=== PATIENT | female | born 1995 | race Caucasian/White ===

== ENCOUNTER 2017-03-31 09:25 | Emergency (ER) | payer OTHER ==
[2017-03-31] MEDS ORDERED: Ondansetron INJ* 2 MG/ML VIAL IV ONE (09:57)
[2017-03-31 10:33] LABS: Hematocrit 44 % (35-47); Hemoglobin 14.8 g/dl (12.0-16.0); Mean Corpuscular HGB Conc 34 g/dl (31-36); Mean Corpuscular Hemoglobin 30 pg (27-31); Mean Corpuscular Volume 87 fL (80-97); Mean Platelet Volume 9 um3 (7.4-10.4); Red Blood Count 5.03 10^6/ul (4.0-5.4); Red Cell Distribution Width 12 % (10.5-15); White Blood Count 8.5 10^3/ul (3.5-10.8)
[2017-03-31 10:37] LABS: Albumin 4.5 g/dL (3.2-5.2); BUN/Creatinine Ratio 15.1 (8-20); Calcium 9.6 mg/dL (8.6-10.3); EGFR African American 127.1 (>60); EGFR Non-African American 98.8 (>60); Potassium 3.8 mmol/L (3.5-5.0); Total Bilirubin 1.9 mg/dL (0.2-1.0); Total Protein 7.5 g/dL (6.4-8.9)
[2017-03-31 10:38] LABS: Urine Bacteria Absent (Absent); Urine Bilirubin Negative (Negative); Urine Glucose Negative (Negative); Urine Nitrite Negative (Negative)
--- NOTE | 2017-03-31 11:31 | RAD ---
INDICATION: Left lower quadrant pain COMPARISON: November 28, 2014 TECHNIQUE: Longitudinal and transverse transvaginal scans of the pelvis were obtained. FINDINGS: Uterus: The uterus is normal in size. There are no focal masses. The uterus measures 8.2 x 2.7 x 4.6 cm. Endometrial thickness: The endometrial thickness is measured at 0.5 cm. . Free fluid: There is a small amount of free fluid. Ovaries: The ovaries are normal in size. The right ovary measures 3.8 x 1.9 x 2.5 cm. The left ovary measures 5.7 x 1.5 x 2.4 cm. There are multiple bilateral follicles. Doppler interrogation demonstrates flow to each ovary. Other: None IMPRESSION: MULTIPLE BILATERAL FOLLICLES WITH A SMALL AMOUNT OF FREE FLUID.
[2017-03-31 11:33] VITALS: BP 122/67
--- NOTE | 2017-03-31 14:13 | ED ---
Abdominal Pain/Female - HPI Summary HPI Summary: Patient presents to ED with CC of LLQ pain x 2 days which she describes as sharp , severe and intermittent. She has a long history of constipation and states she usually feels "bloated" when she is constipated. She had 1X episode of vomiting, but notes that it was likely d/t the pain and nervousness around the pain as opposed to feeling nauseous. She denies other pain or symptoms. She denies ovarian issues in the past and LMP was 2 weeks ago. Last BM was yesterday, but prior to that it was 1 week ago, and that is normal for her. She does not drink a lot of water and states she sometimes needs mag citrate to help her with constipation. She has not taken anything for pain. Nothing makes the pain better or worse. Pain does not radiates and she describes it currently as "dull." - History of Current Complaint Chief Complaint: EDAbdFlynnin Stated Complaint: ABD PAIN,VOMITING Time Seen by Provider: 03/31/17 09:41 Hx Obtained From: Patient Hx Last Menstrual Period: 11/08/16 Onset/Duration: Sudden Onset Timing: Constant Severity Initially: Moderate Severity Currently: Moderate Pain Intensity: 5 Pain Scale Used: 0-10 Numeric Location: Discrete At: LLQ Radiates: No Character: Dull, Cramping Aggravating Factor(s): Nothing Alleviating Factor(s): Nothing Associated Signs and Symptoms: Positive: Constipation, Vomiting - Risk Factors Ectopic Risk Factor: Negative Ovarian Torsion Risk Factor: Reproductive Age Allergies/Adverse Reactions: Allergies Allergy/AdvReac Type Severity Reaction Status Date / Time Amoxicillin Allergy Mild Hives Verified 03/31/17 09:34 Penicillins Allergy Mild Hives Verified 03/31/17 09:34 Codeine Allergy Hives Verified 03/31/17 09:34 PMH/Surg Hx/FS Hx/Imm Hx Previously Healthy: Yes Endocrine/Hematology History: Denies: Hx Anticoagulant Therapy, Hx Diabetes, Hx Thyroid Disease Cardiovascular History: Denies: Hx Congestive Heart Failure, Hx Deep Vein Thrombosis, Hx Hypertension , Hx Myocardial Infarction, Hx Pacemaker/ICD Respiratory History: Denies: Hx Asthma, Hx Chronic Obstructive Pulmonary Disease (COPD), Hx Lung Cancer, Hx Pneumonia, Hx Pulmonary Embolism, Other Respiratory Problems/ Disorders GI History: Denies: Hx Gall Bladder Disease, Hx Gastrointestinal Bleed, Hx Ulcer, Hx Urosepsis History: Denies: Hx Kidney Stones, Hx Renal Disease Musculoskeletal History: Reports: Hx Back Problems Sensory History: Denies: Hx Contacts or Glasses, Hx Hearing Aid Opthamlomology History: Denies: Hx Contacts or Glasses Neurological History: Reports: Hx Migraine - ONCE [id number] Denies: Hx Dementia, Hx Seizures, Hx Transient Ischemic Attacks (TIA) Psychiatric History: Reports: Hx Panic Disorder Denies: Hx Anxiety, Hx Depression, Hx Schizophrenia, Hx Bipolar Disorder - Surgical History Surgery Procedure, Year, and Place: 2013 [place] Teeth, [facility] OFFICE. 06/25/2015 MUSCLE BIOPSY RIGHT THIGH, [facility] [place] Hx Anesthesia Reactions: No Infectious Disease History: No Infectious Disease History: Denies: Hx Clostridium Difficile, Hx Hepatitis, Hx Human Immunodeficiency Virus (HIV), Hx of Known/Suspected MRSA, Hx Shingles, Hx Tuberculosis, History Other Infectious Disease, Traveled Outside the in Last 30 Days - Family History Known Family History: Positive: Hypertension Negative: Cardiac Disease, Diabetes - Social History Occupation: Unemployed Lives: With Family Alcohol Use: Occasionally Alcohol Amount: 2-3 DRINKS PER MONTH Hx Substance Use: No Substance Use Type: Reports: None Hx Tobacco Use: No Smoking Status (MU): Never Smoked Tobacco Do You Chew or Dip Tobacco: No Have You Chewed or Dipped Tobacco in the LAST YEAR: No Review of Systems Constitutional: Negative Eyes: Negative Cardiovascular: Negative Respiratory: Negative Positive: Abdominal Pain, Vomiting Positive: no symptoms reported, see HPI Musculoskeletal: Negative Neurological: Negative Psychological: Normal All Other Systems Reviewed And Are Negative: Yes Physical Exam Triage Information Reviewed: Yes Vital Signs On Initial Exam: Initial Vitals Temp Pulse Resp BP Pulse Ox 97.6 F 89 18 125/70 100 03/31/17 09:31 03/31/17 09:31 03/31/17 09:31 03/31/17 09:31 03/31/17 09:31 Vital Signs Reviewed: Yes Appearance: Positive: Well-Appearing, No Pain Distress Skin: Positive: Warm, Skin Color Reflects Adequate Perfusion Neck: Positive: Supple, Nontender, No Lymphadenopathy Respiratory/Lung Sounds: Positive: Clear to Auscultation, Breath Sounds Present Cardiovascular: Positive: Normal, RRR, Pulses are Symmetrical in both Upper and Lower Extremities Abdomen Description: Positive: Soft, Other: - tenderness over LLQ, no tenderness at Mcburneys point, negative murphys sign, negative psoas, negative obturator. No guarding and abdomen is not distended. bowel sounds diminished. Bowel Sounds: Positive: Hypoactive Musculoskeletal: Positive: Normal, Strength/ROM Intact Neurological: Positive: Sensory/Motor Intact, Alert, Oriented to Person Place, Time Psychiatric: Positive: Normal AVPU Assessment: Alert - Paulo Coma Scale Coma Scale Total: 15 Diagnostics - Vital Signs Vital Signs Temp Pulse Resp BP Pulse Ox 03/31/17 11:32 100.0 F 64 16 122/67 100 03/31/17 09:32 97.6 F 81 17 125/70 100 03/31/17 09:31 97.6 F 89 18 125/70 100 - Laboratory Lab Results: Lab Results 03/31/17 03/31/17 03/31/17 Range/Units 09:33 09:33 09:33 WBC 8.5 (3.5-10.8) 10^3/ul RBC 5.03 (4.0-5.4) 10^6/ul Hgb 14.8 (12.0-16.0) g/dl Hct 44 (35-47) % MCV 87 (80-97) fL MCH 30 (27-31) pg MCHC 34 (31-36) g/dl RDW 12 (10.5-15) % Plt Count 237 (150-450) 10^3/ul MPV 9 (7.4-10.4) um3 Neut % (Auto) 76.0 (38-83) % Lymph % (Auto) 18.8 L (25-47) % [place] % (Auto) 4.1 (1-9) % Eos % (Auto) 0.5 (0-6) % Baso % (Auto) 0.6 (0-2) % Absolute Neuts (auto) 6.4 (1.5-7.7) 10^3/ul Absolute Lymphs (auto) 1.6 (1.0-4.8) 10^3/ul Absolute Monos (auto) 0.3 (0-0.8) 10^3/ul Absolute Eos (auto) 0 (0-0.6) 10^3/ul Absolute Basos (auto) 0 (0-0.2) 10^3/ul Absolute Nucleated RBC 0.01 10^3/ul Nucleated RBC % 0.1 Sodium 137 (133-145) mmol/L Potassium 3.8 (3.5-5.0) mmol/L Chloride 103 (101-111) mmol/L Carbon Dioxide 27 (22-32) mmol/L Anion Gap 7 (2-11) mmol/L BUN 11 (6-24) mg/dL Creatinine 0.73 (0.51-0.95) mg/dL Est GFR ( Amer) 127.1 (>60) Est GFR (Non-Af Amer) 98.8 (>60) BUN/Creatinine Ratio 15.1 (8-20) Glucose 89 (70-100) mg/dL Calcium 9.6 (8.6-10.3) mg/dL Total Bilirubin 1.90 H (0.2-1.0) mg/dL AST 15 (13-39) U/L ALT 11 (7-52) U/L Alkaline Phosphatase 51 (34-104) U/L Total Protein 7.5 (6.4-8.9) g/dL Albumin 4.5 (3.2-5.2) g/dL Globulin 3.0 (2-4) g/dL Albumin/Globulin Ratio 1.5 (1-3) Lipase 11 (11.0-82.0) U/L Beta HCG, Quant 0.75 mIU/mL Urine Color Yellow Urine Appearance Cloudy Urine pH 8.0 (5-9) Ur Specific [place] 1.018 (1.010-1.030) Urine Protein Negative (Negative) Urine Ketones Negative (Negative) Urine Blood Negative (Negative) Urine Nitrate Negative (Negative) Urine Bilirubin Negative (Negative) Urine Urobilinogen Negative (Negative) Ur Leukocyte Esterase 1+ H (Negative) Urine WBC (Auto) Trace(0-5/hpf) (Absent) Urine RBC (Auto) Absent (Absent) Ur Squamous Epith Cells Present H (Absent) Urine Bacteria Absent (Absent) Urine Glucose Negative (Negative) Result Diagrams: 03/31/17 09:33 03/31/17 09:33 Lab Statement: Any lab studies that have been ordered have been reviewed, and results considered in the medical decision making process. Abdominal Pain Fem Course/Dx - Course Course Of Treatment: Patient c/o tenderness over LLQ. No tenderness at Mcburneys point, negative murphys sign, negative psoas, negative obturator. No guarding and abdomen is not distended. bowel sounds diminished. Explained to patient US vs. Xray and to r/o ovarian torsion, cysts, and constipation. Patient prefers to do the US first. US shows multiple bilateral follicles. She is referred back to her OBGYN for this issue. She prefers not to have the abdominal xray as she feels it will show constipation and knows it will not change the course of treatment. She prefers discharge and provider is prescribing zofran if needed for nausea. She refuses pain medicine. She will follow up with PCP and come back for worsening pain. - Diagnoses Differential Diagnosis: Positive: Bowel Obstruction, Constipation, Irritable Bowel Syndrome, Urinary Tract Infection Provider Diagnoses: Constipation Discharge - Discharge Plan Condition: Stable Disposition: HOME Prescriptions: Ondansetron ODT TAB* [Zofran 4 MG Odt TAB*] 4 mg PO Q6H PRN #12 tab.odt MDD 4 PRN Reason: Nausea Patient Education Materials: Constipation (ED), High Fiber Diet (ED) Forms: *Work Release Referrals: Cherrie Lind MD [Primary Care Provider] - Additional Instructions: Recommend Mag Citrate solution for constipation. Increase your water intake. Drink at least 10 glasses of water per day. Slowly increase your fiber intake and decrease the amount of white breads and other sugars. Follow up with an OBGYN. If symptoms persist, come back to ED or see your PCP. Use Zofran as needed for nausea.
== END 2017-03-31 12:45 | disposition home or self-care (01) ==
LOC: ED 09:25
DX: K59.00 Constipation, unspecified (principal); R10.32 Left lower quadrant pain; R11.10 Vomiting, unspecified
CPT/HCPCS: 36415; 76830; 80053; 81003; 81015; 83690; 84702; 85025; 87086; 96374; 99282; J2405

== ENCOUNTER → 2017-04-07 13:36 | Emergency (ER) | payer OTHER ==
[2017-04-07 13:44] VITALS: BP 136/72
== END | disposition left against medical advice (07) ==
LOC: ED 13:36
DX: R10.9 Unspecified abdominal pain (principal); Z53.21 Procedure and treatment not carried out due to patient leaving prior to being seen by health care provider

== ENCOUNTER 2017-09-24 19:19 | Emergency (ER) | payer SELFPAY ==
[2017-09-24 19:29] VITALS: BP 120/62
--- NOTE | 2017-09-24 19:55 | UC ---
Complaint Female HPI - HPI Summary HPI Summary: 22 year old female presents with complains of urinary frequency, urgency , and burning. - History Of Current Complaint Chief Complaint: UCGU Stated Complaint: UTI Time Seen by Provider: 09/24/17 19:23 Hx Obtained From: Patient Hx Last Menstrual Period: September 16, 2017 Onset/Duration: Sudden Onset Timing: Constant Severity Initially: Moderate Severity Currently: Moderate - Allergies/Home Medications Allergies/Adverse Reactions: Allergies Allergy/AdvReac Type Severity Reaction Status Date / Time Amoxicillin Allergy Mild Hives Verified 04/07/17 20:18 Penicillins Allergy Mild Hives Verified 04/07/17 20:18 Codeine Allergy Hives Verified 04/07/17 20:18 Home Medications: Home Medications Clindamycin HCl [Clindamycin 150 MG CAP*] 09/24/17 [History] Ibuprofen [Advil] 400 mg PO 09/24/17 [History] PMH/Surg Hx/FS Hx/Imm Hx Previously Healthy: Yes Other History Of: Negative For: HIV, Hepatitis B, Hepatitis C, Anticoagulant Therapy - Surgical History Surgical History: Yes Surgery Procedure, Year, and Place: 2013 [place] Teeth, [facility]. 06/25/2015 MUSCLE BIOPSY RIGHT THIGH, [facility] [place] - Family History Known Family History: Positive: Hypertension Negative: Cardiac Disease, Diabetes - Social History Alcohol Use: Occasionally Alcohol Amount: 2-3 DRINKS PER MONTH Substance Use Type: None Smoking Status (MU): Never Smoked Tobacco - Immunization History Most Recent Influenza Vaccination: unknown Most Recent Tetanus Shot: uknown Most Recent Pneumonia Vaccination: never Review of Systems Constitutional: Negative Skin: Negative Eyes: Negative ENT: Negative Respiratory: Negative Cardiovascular: Negative Gastrointestinal: Negative Genitourinary: Dysuria, Frequency, Urgency Motor: Negative Neurovascular: Negative Musculoskeletal: Negative Neurological: Negative Psychological: Negative All Other Systems Reviewed And Are Negative: Yes Physical Exam Triage Information Reviewed: Yes Vital Signs: Initial Vital Signs Temp 36.8 C 09/24/17 19:23 Pulse 75 09/24/17 19:23 Resp 16 09/24/17 19:23 BP 120/62 09/24/17 19:23 Pulse Ox 100 09/24/17 19:23 Vital Signs Reviewed: Yes Eye Exam: Normal ENT Exam: Normal Dental Exam: Normal Neck exam: Normal Neck: Positive: 1 Respiratory Exam: Normal Cardiovascular Exam: Normal Abdominal Exam: Normal Musculoskeletal Exam: Normal Neurological Exam: Normal Psychological Exam: Normal Skin Exam: Normal Complaint Female Dx - Differential Dx/Diagnosis Provider Diagnoses: dysuria. urinary frequency Discharge - Discharge Plan Condition: Stable Disposition: HOME Prescriptions: Nitrofurantoin Monohyd Macro [Macrobid] 100 mg PO BID #14 cap Patient Education Materials: Urinary Tract Infection in Women (ED) Referrals: Cherrie Lind MD [Primary Care Provider] -
== END 2017-09-24 20:06 | disposition home or self-care (01) ==
LOC: UCEAST 19:19
DX: R30.0 Dysuria (principal); R35.0 Frequency of micturition; Z32.02 Encounter for pregnancy test, result negative; Z88.5 Allergy status to narcotic agent; Z88.0 Allergy status to penicillin
CPT/HCPCS: 81003; 84702; 87077; 87086; 99211; G0463

== ENCOUNTER 2019-02-04 11:46 | Emergency (ER) | payer SELFPAY ==
[2019-02-04 12:46] VITALS: BP 111/66
[2019-02-04] MEDS ORDERED: Tetan/Diph/Pertus SYR(Tdap)* 0.5 ML SYR(BOOSTRIX) use SYR IM ONE (14:22)
--- NOTE | 2019-02-04 14:59 | UC ---
UC General HPI - HPI Summary HPI Summary: 23 yo female c/o L great toe plantar wound. Event occurred 01/30/19 in [facility] [place]. Cut foot on something, thinks sharp shell[place] Has been using H2O2, dressing changes tid. Not healing. No redness. A little tender. No fever / chills. No GI issues. No cp / sob. Last Tet booster 2005. Takes regular bcp, denies . - History of Current Complaint Chief Complaint: UCLaceration Stated Complaint: CUT ON FOOT Hx Obtained From: Patient Hx Last Menstrual Period: 01/05/19 Pain Intensity: 5 - Allergy/Home Medications Allergies/Adverse Reactions: Allergies Allergy/AdvReac Type Severity Reaction Status Date / Time codeine Allergy Hives Verified 02/04/19 12:39 Penicillins Allergy Hives Verified 02/04/19 12:39 PMH/Surg Hx/FS Hx/Imm Hx Previously Healthy: Yes Other History Of: Negative For: HIV, Hepatitis B, Hepatitis C, Anticoagulant Therapy - Surgical History Surgical History: Yes Surgery Procedure, Year, and Place: 2013 [place] Teeth, [facility]. 06/25/2015 MUSCLE BIOPSY RIGHT THIGH, [facility] [place] - Family History Known Family History: Positive: Hypertension Negative: Cardiac Disease, Diabetes - Social History Alcohol Use: Occasionally Alcohol Amount: 2-3 DRINKS PER MONTH Substance Use Type: None Smoking Status (MU): Never Smoked Tobacco - Immunization History Most Recent Influenza Vaccination: unknown Most Recent Tetanus Shot: uknown Most Recent Pneumonia Vaccination: never Review of Systems All Other Systems Reviewed And Are Negative: Yes Constitutional: Positive: Other - see hpi Skin: Positive: Other - see hpi Eyes: Positive: Other - see hpi ENT: Positive: Other - see hpi Cardiovascular: Positive: Negative Gastrointestinal: Positive: Negative Genitourinary: Positive: Negative Motor: Positive: Negative, Other - see hpi Neurovascular: Positive: Negative Musculoskeletal: Positive: Other: - see hpi Neurological: Positive: Other - see hpi Psychological: Positive: Negative Is Patient Immunocompromised?: No Physical Exam Triage Information Reviewed: Yes Appearance: Well-Appearing, Well-Nourished Vital Signs: Initial Vital Signs Temp 98 F 02/04/19 12:43 Pulse 60 02/04/19 12:43 Resp 16 02/04/19 12:43 BP 111/66 02/04/19 12:43 Pulse Ox 100 02/04/19 12:43 Vital Signs Reviewed: Yes Eye Exam: Normal - grossly normal ENT Exam: Normal - grossly normal Neck exam: Normal Neck: Positive: Supple Respiratory Exam: Normal Cardiovascular Exam: Normal Abdominal Exam: Normal Musculoskeletal Exam: Normal Neurological Exam: Normal Psychological Exam: Normal - conversing easily and appropriately nad Skin Exam: Normal - nondiaphoretic. L great toe prox plantar + wound with dry skin, + pink granulation underlying, mild slough. no purulence, crepitus, swelling. not hot or overly red. CR is good. ROM good. Course/Dx - Course Course Of Treatment: Reviewed WC and WH with pt. see avs. Tet booster administered. F/u PCP advised, routine. Questions as posed answered to the best of my ability. - Diagnoses Provider Diagnosis: Wound, open, toe Discharge - Sign-Out/Discharge Documenting (check all that apply): Patient Departure All imaging exams completed and their final reports reviewed: No Studies - Discharge Plan Condition: Stable Disposition: HOME Prescriptions: Mupirocin 2% OINT* [Bactroban 2 % Oint*] 1 applic TOPICAL BID #1 tube Sulfamethox/Trimethoprim DS* [Bactrim DS 800/160 TAB*] 1 tab PO BID #20 tab Patient Education Materials: Diphtheria/Acellular Pertussis/Tetanus Booster Vaccine (By injection), Acute Wound Care (ED) Referrals: Cherrie Lind MD [Primary Care Provider] - Additional Instructions: Dressing change 1x / day, max 2x / day. Mupirocin / antifungal (over the counter athlete's foot cream) 50/50 thin layer , light cover as needed. Avoid telfa. Avoid soak, except shower ok. Elevate foot as possible. AVOID HIGH HEELS until healed. Use control backup method if you start taking Please return for worse or new problems. - Billing Disposition and Condition Condition: STABLE Disposition: Home
== END 2019-02-04 15:11 | disposition home or self-care (01) ==
LOC: UCEAST 11:46
DX: S91.112A Laceration without foreign body of left great toe without damage to nail, initial encounter (principal); Z88.0 Allergy status to penicillin; Z88.5 Allergy status to narcotic agent; W45.8XXA Other foreign body or object entering through skin, initial encounter; Y92.828 Other wilderness area as the place of occurrence of the external cause
CPT/HCPCS: 90715; 99202; G0463

== ENCOUNTER 2021-09-21 00:14 | Inpatient (IN) ==
[2021-09-21 02:06] LABS: Urine Benzodiazepine Screen None Detected (None Detect); Urine Cannabinoids Screen None Detected (None Detect); Urine Opiates Screen None Detected (None Detect)
[2021-09-21 02:07] LABS: Rapid COVID-19 Molecular Undetected (Undetected)
[2021-09-21] MEDS ORDERED: Nalbuphine 10 MG/ML 1 ML VIAL IV ONE (04:48)
[2021-09-21] MEDS ORDERED: Promethazine INJ(RESTRICTED) 25 MG/ML 1 ml VIAL IV ONE (04:48)
[2021-09-21 05:15] LABS: ABS Eosinophils 0.1 10^3/ul (0-0.6); ABS Monocytes 0.7 10^3/ul (0-0.8); ABS Neutrophils 7.8 10^3/ul (1.5-7.7); Eosinophil % 0.6 %; Hematocrit 38 % (35-47); Hemoglobin 13.2 g/dL (12.0-16.0); Lymphocyte % 18.8 %; Mean Corpuscular HGB Conc 35 g/dL (31-36); Mean Corpuscular Hemoglobin 31 pg (27-31); Mean Corpuscular Volume 88 fL (80-97); Mean Platelet Volume 8.8 fL (7.4-10.4); Platelet Count 138 10^3/uL (150-450); Red Blood Count 4.27 10^6 /uL (3.70-4.87); Red Cell Distribution Width 14 % (10-15); White Blood Count 10.6 10^3/uL (3.5-10.8)
[2021-09-21] MEDS ORDERED: OBEPIDURAL 250 ML EPIDURAL ONE (10:33)
[2021-09-21] MEDS ORDERED: Bupivacaine 0.25% SDV PF 10 ML VIAL INJ ONE (10:55)
[2021-09-21] MEDS ORDERED: Sodium Citrate/Citric Acid LIQ 15 ML UDC PO PRN (11:55)
[2021-09-21] MEDS ORDERED: EPHEDrine (Pressors) 50 MG/ML VIAL IV PUSH PRN ×2 (11:55)
[2021-09-21] MEDS ORDERED: Phenylephrine 40 mcg/mL 10mL (400mcg) SYRINGE IV PUSH PRN ×2 (11:55)
[2021-09-21] MEDS ORDERED: Lactated Ringers 1000 ml BAG 1,000 ML IV ONE (11:55)
[2021-09-21] MEDS ORDERED: Oxytocin in LR 20 UNITS/1,000 ML BAG IVPB SCH ×2 (12:00→21:00)
[2021-09-21] MEDS ORDERED: OBEPIDURAL 250 ML EPIDURAL SCH (12:00)
[2021-09-21] MEDS ORDERED: Lactated Ringers 1000 ml BAG 1,000 ML IV SCH ×2 (12:00→21:00)
[2021-09-21 12:56] LABS: Urine Appearance Clear; Urine Bilirubin Negative (Negative); Urine Blood Negative (Negative); Urine Color Yellow; Urine Glucose Negative (Negative); Urine Ketones Trace (Negative); Urine Nitrite Negative (Negative); Urine Protein Negative (Negative); Urine Urobilinogen Negative (Negative)
[2021-09-21] MEDS: Dibucaine 1% OINT 28.35 GM TUBE PR PRN (20:45)
[2021-09-21] MEDS: Witch Hazel PAD JAR TOPICAL PRN (20:45)
[2021-09-21] MEDS ORDERED: Ampicillin ADVAN 2 GM in NS 0.9% 100 ml BAG 100 ML IVPB ONE (21:35)
[2021-09-21] MEDS ORDERED: Clindamycin 900 MG/D5W BAG IVPB ONE (22:00)
[2021-09-21] MEDS ORDERED: NS 0.9% IVPB ONE (22:30)
[2021-09-21] MEDS ORDERED: GENTAMICIN ADULT IVPB ONE (22:30)
[2021-09-21] MEDS ORDERED: Ammonia Inhalant 1 EA AMP ONE (22:46)
[2021-09-21] MEDS ORDERED: Lidocaine 1% VIAL 10 MG/ML VIAL ONE (23:40)
[2021-09-22 08:42] LABS: ABS Eosinophils 0.1 10^3/ul (0-0.6); ABS Lymphocytes 1.7 10^3/ul (1.0-4.8); ABS Monocytes 0.8 10^3/ul (0-0.8); ABS Neutrophils 11.8 10^3/ul (1.5-7.7); Eosinophil % 0.5 %; Hematocrit 36 % (35-47); Hemoglobin 12.4 g/dL (12.0-16.0); Lymphocyte % 11.7 %; Mean Corpuscular HGB Conc 35 g/dL (31-36); Mean Corpuscular Hemoglobin 31 pg (27-31); Mean Corpuscular Volume 88 fL (80-97); Mean Platelet Volume 8.8 fL (7.4-10.4); Platelet Count 134 10^3/uL (150-450); Red Blood Count 4.02 10^6 /uL (3.70-4.87); Red Cell Distribution Width 14 % (10-15); White Blood Count 14.4 10^3/uL (3.5-10.8)
[2021-09-22] MEDS: Dibucaine 1% OINT 28.35 GM TUBE PR PRN (15:25)
[2021-09-23] MEDS: Witch Hazel PAD JAR TOPICAL PRN (06:53)
[2021-09-23 08:18] VITALS: BP 112/63
== END 2021-09-23 13:05 | disposition home or self-care (01) | DRG 560 ==
LOC: MCHOBOUT 00:14 → MCHOB 00:54
PROVIDERS: ADMIT Midwife; ATTEND Midwife

== ENCOUNTER 2024-03-16 17:53 | Inpatient (IN) ==
[2024-03-16] MEDS ORDERED: Buffered Lidocaine 1% SYRIN 1 ml INTRADERM ONE (18:30)
[2024-03-16] MEDS ORDERED: Lidocaine 1% VIAL 10 MG/ML 30 ML VIAL INJ PRN (18:30)
[2024-03-16] MEDS ORDERED: Prochlorperazine 5 mg/ml 2 ml VIAL (10 mg) IV PRN (18:30)
[2024-03-16 18:34] LABS: ABS Lymphocytes 1.5 10^3/uL (1.0-4.8); ABS Monocytes 0.6 10^3/uL (0.0-0.9); ABS Neutrophils 8.8 10^3/uL (1.5-7.6); ABS Nucleated RBC 0.01 10^3/ul; Eosinophil % 0.3 %; Hematocrit 41.9 % (35-45); Hemoglobin 14.5 g/dL (11.5-14.3); Mean Corpuscular Hemoglobin 29.7 pg (27-33); Mean Corpuscular Hgb Conc 34.6 g/dL (31-36); Mean Platelet Volume 8.8 fL (7.5-11.2); Nucleated Red Blood Cells % 0.1 %/100WBC (0.0-0.8); Platelet Count 180 10^3/uL (150-450); Red Blood Count 4.87 10^6/uL (3.63-4.92); Red Cell Distribution Width 13.4 % (12-17)
[2024-03-16] MEDS ORDERED: Lactated Ringers 1000 ml BAG 1,000 ML IV SCH (19:00)
[2024-03-16] MEDS: Lactated Ringers 1000 ml BAG 1,000 ML IV ONE (19:21)
[2024-03-16 20:11] LABS: Urine Benzodiazepine Screen None Detected (None Detect); Urine Opiates Screen None Detected (None Detect)
[2024-03-16] MEDS: Lidocaine 2% JELLY 6 ML Topical TOPICAL ONE (20:31)
[2024-03-16 23:37] LABS: Urine Appearance Clear; Urine Bilirubin Negative (Negative); Urine Blood Negative (Negative); Urine Color Yellow; Urine Glucose Negative (Negative); Urine Ketones 1+ (Negative); Urine Nitrite Negative (Negative); Urine Protein Trace (Negative); Urine Specific Gravity 1.016 (1.002-1.030); Urine Urobilinogen Negative (Negative)
== END 2024-03-17 00:37 | disposition home or self-care (01) | DRG 565 ==
LOC: MCHOBOUT 17:53 → MCHOB 18:12
PROVIDERS: ADMIT Registered Nurse; ATTEND Registered Nurse

== ENCOUNTER 2024-03-21 10:06 | Inpatient (IN) ==
[2024-03-21] MEDS ORDERED: Prochlorperazine 5 mg/ml 2 ml VIAL (10 mg) IV PRN (10:43)
[2024-03-21] MEDS ORDERED: Lidocaine 1% VIAL 10 MG/ML 30 ML VIAL INJ PRN (10:43)
[2024-03-21 11:12] LABS: ABS Lymphocytes 1.4 10^3/uL (1.0-4.8); ABS Monocytes 0.4 10^3/uL (0.0-0.9); ABS Neutrophils 4.8 10^3/uL (1.5-7.6); ABS Nucleated RBC 0.01 10^3/ul; Eosinophil % 0.7 %; Hematocrit 38.2 % (35-45); Hemoglobin 13.2 g/dL (11.5-14.3); Lymphocyte % 20.4 %; Mean Corpuscular Hemoglobin 29.6 pg (27-33); Mean Corpuscular Hgb Conc 34.6 g/dL (31-36); Mean Corpuscular Volume 85.7 fL (80-97); Mean Platelet Volume 9.1 fL (7.5-11.2); Nucleated Red Blood Cells % 0.2 %/100WBC (0.0-0.8); Platelet Count 179 10^3/uL (150-450); Red Blood Count 4.46 10^6/uL (3.63-4.92); Red Cell Distribution Width 13.5 % (12-17); White Blood Count 6.7 10^3/uL (3.8-11.8)
[2024-03-21 11:38] LABS: Urine Benzodiazepine Screen None Detected (None Detect); Urine Opiates Screen None Detected (None Detect)
[2024-03-21] MEDS: Lactated Ringers 1000 ml BAG 1,000 ML IV SCH ×2 (13:30→23:19)
[2024-03-21] MEDS: Oxytocin in LR 20,000 MILLI.UNIT/1,000 ML BAG IV SCH (13:30)
[2024-03-21] MEDS: Buffered Lidocaine 1% SYRIN 1 ml INTRADERM ONE (21:22)
[2024-03-21] MEDS: OBEPIDURAL (200 ML) 200 ML EPIDURAL SCH (22:55)
[2024-03-21] MEDS ORDERED: Sodium Citrate/Citric Acid LIQ 15 ML UDC PO PRN (23:07)
[2024-03-21] MEDS ORDERED: Phenylephrine 40 mcg/mL 10mL (400mcg) SYRINGE IV PUSH PRN ×2 (23:07)
[2024-03-21] MEDS: Lactated Ringers 1000 ml BAG 1,000 ML IV ONE ×2 (23:13)
[2024-03-21] MEDS: Lidocaine 1.5% EPI 1:200,000 30 ML SDV ONE (23:13)
[2024-03-21] MEDS: OBEPIDURAL (200 ML) 200 ML EPIDURAL ONE (23:13)
[2024-03-22 00:03] LABS: Urine Appearance Clear; Urine Bilirubin Negative (Negative); Urine Blood Negative (Negative); Urine Color Colorless; Urine Glucose Negative (Negative); Urine Ketones Negative (Negative); Urine Nitrite Negative (Negative); Urine Protein Negative (Negative); Urine Specific Gravity 1.005 (1.002-1.030); Urine Urobilinogen Negative (Negative); Urine pH 6.5 (5.0-8.0)
[2024-03-22] MEDS ORDERED: Glycerin ADULT 2.4 gm SUPP PR PRN (01:29)
[2024-03-22] MEDS ORDERED: Lactated Ringers 1000 ml BAG 1,000 ML IV SCH (02:00)
[2024-03-22] MEDS: Witch Hazel PAD JAR TOPICAL PRN (05:13)
[2024-03-22] MEDS: Dibucaine 1% OINT 28.35 GM TUBE PR PRN (05:13)
[2024-03-22 08:13] LABS: ABS Lymphocytes 1.4 10^3/uL (1.0-4.8); ABS Monocytes 0.6 10^3/uL (0.0-0.9); ABS Neutrophils 6.6 10^3/uL (1.5-7.6); Eosinophil % 0.3 %; Hemoglobin 12.1 g/dL (11.5-14.3); Lymphocyte % 16.1 %; Mean Corpuscular Hemoglobin 30.2 pg (27-33); Mean Corpuscular Hgb Conc 35.7 g/dL (31-36); Mean Corpuscular Volume 84.5 fL (80-97); Mean Platelet Volume 8.5 fL (7.5-11.2); Platelet Count 145 10^3/uL (150-450); Red Blood Count 4.02 10^6/uL (3.63-4.92); Red Cell Distribution Width 13.5 % (12-17); White Blood Count 8.6 10^3/uL (3.8-11.8)
[2024-03-22] MEDS: Lidocaine 2% JELLY 6 ML Topical TOPICAL PRN (14:40)
[2024-03-23 09:05] VITALS: BP 121/77
== END 2024-03-23 11:44 | disposition home or self-care (01) | DRG 560 ==
LOC: MCHOBOUT 10:06 → MCHOB 10:43
PROVIDERS: ADMIT Registered Nurse; ATTEND Registered Nurse